=== PATIENT | male | born 1965 | race Caucasian/White ===

== ENCOUNTER → 2017-12-28 | Outpatient (CLI) | payer OTHER ==
[~2017-12-28] MED LIST: CENTRUM SILVER1 EAC2 PO; LIPOFLAVONOID1 EACH PO; PEPCID20 MG PO; PROBIOTIC1 EAC1 PO
--- NOTE | ~2017-12-28 | EKG ---
[place] [address] [facility] [employer] [place] [place] [address] ELECTROCARDIOGRAM REPORT Name: RYLEY DHALIWAL Room [facility]: [facility] CenterDun[facility] [id number] Admission: 12/28/17 Attend Phys: Abdiel Robles MD Discharge: Date of : 67 Report #: [id number] THIS REPORT FOR: //name// [facility] Test Date: 2017-12-28 Test Time: 06:36:19 Pat Name: RYLEY DHALIWAL Department: Room: Gender: M Bid Analyst: MIRANDA : 1965 Requested By: Abdiel Robles Order Number: [id number] MD: Mariano Cloud Measurements Intervals [place] Rate: 83 P: 44 VA: 160 QRS: -26 QRSD: 91 T: 24 QT: 336 QTc: 395 Interpretive Statements Sinus rhythm Borderline left axis deviation Abnormal R-wave progression, early transition No previous ECG available for comparison Electronically Signed On 12-28-2017 9:55:36 CDT by Mariano Cloud [email or web address] <ELECTRONICALLY SIGNED> By: Mariano Cloud MD, [facility] 12/28/17 0955 [id number] 5 Mariano Cloud MD, FACC /EPI
== END | disposition home or self-care (01) ==
LOC: LITH 05:50
DX: N20.1 Calculus of ureter (principal); Z87.19 Personal history of other diseases of the digestive system

== ENCOUNTER → 2018-02-09 | Outpatient (CLI) | payer OTHER ==
[~2018-02-09] MED LIST changes: +FLOMAX0.4 MG PO
== END | disposition home or self-care (01) ==
LOC: LITH 05:56
DX: N20.1 Calculus of ureter (principal); K21.9 Gastro-esophageal reflux disease without esophagitis; Z87.19 Personal history of other diseases of the digestive system; Z98.890 Other specified postprocedural states